=== PATIENT | female | born 2000 | race Two or more races ===

== ENCOUNTER 2022-03-10 17:20 | Emergency (ER) | payer OTHER ==
[~2022-03-10] VITALS: Ht 162.6 cm; Wt 86.2 kg
[2022-03-10] MEDS ORDERED: ONDANSETRON ODT8 MG PO (20:12)
== END 2022-03-10 20:18 | disposition home or self-care (01) ==
LOC: EMR PED 17:20 → ER 17:38
DX: O21.0 Mild hyperemesis gravidarum (principal); O21.8 Other vomiting complicating pregnancy; Z3A.11 11 weeks gestation of pregnancy; R10.13 Epigastric pain; Z20.822 Contact with and (suspected) exposure to COVID-19

== ENCOUNTER 2022-09-22 10:15 | Inpatient (IN) | payer OTHER ==
[~2022-09-22] VITALS: Ht 162.6 cm; Wt 98.4 kg
[~2022-09-22 10:15] MED LIST: ONDANSETRON ODT8 MG PO
[2022-09-28] MEDS ORDERED: PERCOCET 5-3251 EACH PO ×2 (17:00→17:01)
[2022-09-29] MEDS ORDERED: SURFAK240 M1 PO (11:21)
[2022-09-29] MEDS ORDERED: IBU800 MG PO (11:21)
== END 2022-09-29 14:59 | disposition home or self-care (01) | DRG 788 ==
LOC: O/R 09-26 05:10 → OB/GYN 09-26 05:10 → LDR 09-26 07:00 → OB/GYN 09-26 18:28
PROVIDERS: ADMIT Specialist; ATTEND Specialist
PROC: 4A1HXCZ Monitoring of Products of Conception, Cardiac Rate, External Approach (ICD-10-PCS; 2022-09-26)
PROC: 10D00Z1 Extraction of Products of Conception, Low, Open Approach (ICD-10-PCS; principal; 2022-09-26 07:00)
DX: O32.1XX0 Maternal care for breech presentation, not applicable or unspecified (principal); O36.63X0 Maternal care for excessive fetal growth, third trimester, not applicable or unspecified; Z3A.39 39 weeks gestation of pregnancy; Z37.0 Single live birth; Z20.822 Contact with and (suspected) exposure to COVID-19